=== PATIENT | female | born 1930 | race Caucasian/White ===

== ENCOUNTER 2018-08-20 09:00 | Day surgery (SDC) | payer MEDICARE, BC ==
[~2018-08-20 09:00] MED LIST: Lactated Ringers 1,000 ML IV SCH; Propofol 200 MG/20 ML SDV ONE; Sodium Chloride 0.9% 10 ML Syringe FLUSH PRN
--- NOTE | 2018-08-20 09:52 | PCM.HPR ---
H & P Addendum review - H & P Addendum Review Date of Original H & P: 08/17/18 Date Reviewed: 08/20/18 Time Reviewed: 09:52 Patient was Examined: No Changes
[2018-08-20] MEDS ORDERED: Propofol 200 MG/20 ML SDV ONE (10:40)
--- NOTE | 2018-08-20 10:49 | PCM.OPNOTE ---
- General Post-Op/Procedure Note Date of Surgery/Procedure: 08/20/18 Operative Procedure(s): Colonoscopy to Sig Colon Findings: Large Rectal Ca Sig tics Pre Op Diagnosis: Rectal Bleeding Post-Op Diagnosis: Same Primary Surgeon: Chan Balderas Anesthesia Provider: Floresita Morgan Complications: None Condition: Good
--- NOTE | 2018-08-20 13:43 | OR ---
Date of Procedure: 08/20/2018 PREOPERATIVE DIAGNOSIS: Rectal bleeding. POSTOPERATIVE DIAGNOSES: 1. Large rectal cancer. 2. Sigmoid diverticulosis. PROCEDURE: Colonoscopy to the sigmoid colon. ANESTHESIA: IV sedation. DESCRIPTION OF PROCEDURE: The patient was brought to the procedure room where she was placed on her left side and IV sedation administered. Digital rectal exam was performed which reveals a soft tumor in the distal rectum. This was consistent with a malignancy. The colonoscope was inserted and advanced to approximately 30 cm into the sigmoid colon where multiple diverticula were present. Colon at that point was fairly tortuous and I did not feel necessary to go further since the obvious source of her problems were seen in the rectum, where she has a large tumor approximately half circumferential extending from the anal verge to 10 cm. There was oozing present and this was the obvious source of her bleeding and anemia. Air was removed and the scope withdrawn. The patient tolerated the procedure well and returned to Recovery in stable condition. WARREN WHITE MD /[id number]
== END 2018-08-20 12:20 | disposition home or self-care (01) ==
LOC: LL.SDS 09:00
PROVIDERS: ATTEND Surgery
DX: C20 Malignant neoplasm of rectum (principal); K57.30 Diverticulosis of large intestine without perforation or abscess without bleeding; I10 Essential (primary) hypertension; J44.9 Chronic obstructive pulmonary disease, unspecified; J45.20 Mild intermittent asthma, uncomplicated; F32.9 Major depressive disorder, single episode, unspecified; G25.81 Restless legs syndrome; G47.30 Sleep apnea, unspecified; Z87.891 Personal history of nicotine dependence; Z79.899 Other long term (current) drug therapy; Z98.890 Other specified postprocedural states; Z88.8 Allergy status to other drugs, medicaments and biological substances
CPT/HCPCS: 45378; J2704; J7120